=== PATIENT | female | born 1960 | race Caucasian/White ===

== ENCOUNTER → 2017-02-05 | Outpatient (CLI) | payer BC ==
--- NOTE | 2017-02-06 07:18 | KCIC ---
PROCEDURE Bilateral digital mammogram with CAD HISTORY Routine screening TECHNIQUE Bilateral digital routine views were obtained with computer-aided detection. COMPARISON 10/03/13 FINDINGS Density D: Predominantly dense ffibroglandular tissue. There is no suspicious mass, calcifications or areas of architectural distortion. IMPRESSION No suspicious findings. [Recommend routine screening mammography in one year.] The breast tissue is dense. Mammography is less sensitive for abnormalities in areas of dense tissue. This study was interpreted with the benefit of Computerized Aided Detection (CAD). Mammography is not 100% sensitive in detecting breast cancer. Therefore, a self breast exam and a clinical breast exam are very important. A negative mammogram does not negate a clinically suspicious finding and should not result in a delay in biopsying a clinically suspicious abnormality. BI-RADS category 1: Negative. Electronically signed by: Omar Patricio MD (Feb 06, 2017 07:17:34)
== END | disposition home or self-care (01) ==
LOC: KCIC MAMMO 14:01
PROVIDERS: ATTEND Family Medicine
DX: Z12.31 Encounter for screening mammogram for malignant neoplasm of breast (principal)
CPT/HCPCS: G0202; 77067

== ENCOUNTER → 2017-06-09 | Outpatient (CLI) | payer BC ==
--- NOTE | 2017-06-09 11:16 | KCIC ---
Pelvic ultrasound Clinical Indication:Pelvic pain, right greater the left.. Bloating. Hysterectomy 10 years ago.. TRANSABDOMINAL SCAN Right and left ovaries are not seen. TRANSVAGINAL SCAN Uterus: Surgically absent. Right ovary: 2.5 cm long axis. Positive blood flow. Right ovarian lesion is most compatible with a complex cyst measuring 16 mm long axis, this does not demonstrate significant hypervascularity. Left ovary: 4.4 cm long axis. Positive blood flow. Left ovarian lesion is likely a complex cyst measuring 3.0 cm long axis without significant internal hypervascularity. Free fluid: None visualized. Peristalsing bowel is identified in the midline. No abnormal tissue or fluid is seen in the region of the vaginal cuff. IMPRESSION: 1. Complex lesions identified in each ovary, most likely hemorrhagic cysts. Recommend short-term ultrasound follow-up. 2. Post hysterectomy. Electronically signed by: Jude Peacock MD (06/09/2017 11:12 AM) [id number]
== END | disposition home or self-care (01) ==
LOC: KCIC US 08:53
PROVIDERS: ATTEND Family Medicine
DX: R10.2 Pelvic and perineal pain (principal); R14.0 Abdominal distension (gaseous); Z90.710 Acquired absence of both cervix and uterus
CPT/HCPCS: 76830; 76856

== ENCOUNTER → 2017-06-30 | Outpatient (CLI) | payer BC ==
--- NOTE | 2017-06-30 11:20 | KCIC ---
Examination : Small Bowel Series: Indication: Bloating for 2 weeks. Comparison: None available FINDINGS: The preliminary film is unremarkable. Following administration of oral barium, images were performed at timed intervals. The transit time it is approximately 30 minutes. The duodenal loop appears normal. The small bowel mucosal pattern is normal. There is no stricture or dilatation. The terminal ileum appears normal. Impression: Negative small bowel series. Total fluoroscopic time 39 seconds. Total fluoroscopic images # 2. Electronically signed by: Manas Hussein MD (06/30/2017 11:17 AM) [id number]
== END | disposition home or self-care (01) ==
LOC: KCIC 09:21
PROVIDERS: ATTEND Internal Medicine Gastroenterology
DX: R14.0 Abdominal distension (gaseous) (principal); R19.7 Diarrhea, unspecified
CPT/HCPCS: 74250

== ENCOUNTER → 2019-01-24 | Outpatient (CLI) | payer BC ==
--- NOTE | 2019-01-24 17:34 | KCIC ---
Bilateral digital screening mammograms with 3-D tomosynthesis: Reason for examination: Routine screening. Comparison is made to previous studies dated 02/05/2017 and 10/03/2013. Bilateral mammograms in CC and oblique projections were obtained with 2-D imaging and 3-D tomosynthesis imaging on a Siemens Inspiration unit and reviewed on the workstation. Interpretation was made with the benefit of CAD. The skin and nipples show no abnormalities. No abnormal axillary lymph nodes are seen. The breast parenchyma is extremely dense. (Breast density: Category D.) There are no dominant masses, suspicious calcifications or architectural distortion. Impression: No evidence of malignancy. Recommend routine screening. Your patient's mammogram demonstrates that she has dense breast tissue (breast density category C or D), which could hide abnormalities, and if she has other risk factors for breast cancer that have been identified, she might benefit from supplemental screening tests that may be suggested by you as her ordering physician. Dense breast tissue, in and of itself, is a relatively common condition. Therefore, this information is not provided to cause undue concern, but rather to raise your awareness and to promote discussion with your patient regarding the presence of other risk factors, in addition to dense breast tissue. Your patient's mammography results will be sent to her. BI-RAD Category 1: Negative. "Our facility is accredited by the [employer] Mammography Program." This patient's information has been entered into a reminder system for the patient to be notified with the results of her examination and a target date for the next mammogram. Electronically signed by: Aviva Morrow MD (01/24/2019 5:31 PM) [id number]
== END | disposition home or self-care (01) ==
LOC: KCIC MAMMO 14:56
PROVIDERS: ATTEND Family Medicine
DX: Z12.31 Encounter for screening mammogram for malignant neoplasm of breast (principal)
CPT/HCPCS: 77063; 77067